=== PATIENT | male | born 1960 | race Caucasian/White ===

== ENCOUNTER → 2016-08-01 | Outpatient (CLI) | payer OTHER ==
[~2016-08-01] MED LIST: B-CO1TAB21 PO; CITA20TA9 PO; DICY10CA12 PO; GLUC500C4 PO; LISI-461 PO; METO25TA3 PO; MULT-220 PO; OMEP20CA9 PO; PRAV40TA PO; ZINC50TA3 PO
[2016-08-01 11:22] LABS: ESTIMATED AVERAGE GLUCOSE 131 mg/dl; HA1C FLAG Normal (Normal)
== END | disposition home or self-care (01) ==
LOC: C.LABBC 08:23
PROVIDERS: ATTEND Internal Medicine Geriatric Medicine
DX: E11.9 Type 2 diabetes mellitus without complications (principal)

== ENCOUNTER → 2016-08-11 | Outpatient (CLI) | payer OTHER ==
[2016-08-11 13:17] LABS: ALB/GLOB RATIO 0.9 (0.9-2); ALT/SGPT 39 U/L (12-78); AST/SGOT 19 U/L (15-37); BLOOD UREA NITROGEN 9 mg/dl (7-18); BUN/CREATININE RATIO 10.4 (10-20); CALCIUM 9.3 mg/dl (8.5-10.1); CARBON DIOXIDE 27 mmol/L (21-32); CHLORIDE 106 mmol/L (98-107); CHOLESTEROL 138 mg/dl (0-200); CREATININE 0.88 mg/dl (0.60-1.40); GLUCOSE 107 mg/dl (70-99); POTASSIUM 4.3 mmol/L (3.5-5.1); SODIUM 139 mmol/L (136-145); TRIGLYCERIDES 76 mg/dl (0-150); VERY LOW DENSITY LIPOPROT CALC 15 mg/dl
[2016-08-11 13:18] LABS: ALKALINE PHOSPHATASE 63 U/L (45-117); CHOLESTEROL/HDL RATIO 2.6; HDL CHOLESTEROL 53 mg/dl; LDL CHOLESTEROL CALCULATED 70 mg/dl
[2016-08-11 13:37] LABS: RATIO 4.8 mcg/mg (0-30.0)
== END | disposition home or self-care (01) ==
LOC: C.LABBC 10:36
PROVIDERS: ATTEND Family Medicine
DX: I10 Essential (primary) hypertension (principal); E11.9 Type 2 diabetes mellitus without complications; Z11.59 Encounter for screening for other viral diseases; E78.5 Hyperlipidemia, unspecified

== ENCOUNTER → 2016-08-17 | Outpatient (CLI) | payer OTHER ==
[~2016-08-17] VITALS: Ht 182.9 cm; Wt 124.2 kg
[2016-08-17 11:41] VITALS: Ht 182.9 cm; Wt 124.2 kg
== END | disposition home or self-care (01) ==
LOC: C.NRED 09:08
PROVIDERS: ATTEND Family Medicine
DX: E11.9 Type 2 diabetes mellitus without complications (principal)

== ENCOUNTER → 2016-12-03 | Outpatient (CLI) | payer OTHER ==
[~2016-12-03] MED LIST changes: +ALBU18002 INH; +ASPI81TA28 PO; +CHOL1000 PO; +CINN500C13 PO; +GLC/500 PO; +LOSA50TA6 PO; +MONT1TAB3 PO; +OMEG10007 PO; +QVRINH80 INH; +SALI0.657 NAE; +TRIA1SPR4 NAE
[2016-12-03 10:45] LABS: BASO % 0.4 %; BASO ABS # 0.03 K/uL (0-0.2); COMPLETE YES; EOS % 1.5 %; HEMATOCRIT 43.2 % (42-52); IG% 0.4 %; LYMPH % 27.6 %; LYMPH ABS # 2.06 K/uL (1.2-3.4); MEAN CELL VOLUME 91.3 fL (80-100); MEAN CORPUSCULAR HEMOGLOBIN 30.4 pg (25-34); MEAN CORPUSCULAR HGB CONC 33.3 g/dl (32-36); MEAN PLATELET VOLUME 11.2 fL (7.4-10.4); MONO % 12.4 %; NEUT % 57.7 %; PLATELET COUNT 201 K/uL (130-400); RED BLOOD COUNT 4.73 M/uL (4.7-6.1); WHITE BLOOD COUNT 7.47 K/uL (4.8-10.8)
[2016-12-03 10:58] LABS: CALCIUM 9.4 mg/dl (8.5-10.1)
[2016-12-03 11:04] LABS: ESTIMATED AVERAGE GLUCOSE 131 mg/dl; HA1C FLAG Normal (Normal)
[2016-12-03 11:06] LABS: ALB/GLOB RATIO 1.1 (0.9-2); ALT/SGPT 35 U/L (12-78); AST/SGOT 16 U/L (15-37); BLOOD UREA NITROGEN 11 mg/dl (7-18); CARBON DIOXIDE 27 mmol/L (21-32); CHLORIDE 103 mmol/L (98-107); CHOLESTEROL 138 mg/dl (0-200); CREATININE 0.87 mg/dl (0.60-1.40); GLUCOSE 108 mg/dl (70-99); POTASSIUM 4.3 mmol/L (3.5-5.1); SODIUM 138 mmol/L (136-145); TRIGLYCERIDES 98 mg/dl (0-150); VERY LOW DENSITY LIPOPROT CALC 20 mg/dl
[2016-12-03 11:09] LABS: ALKALINE PHOSPHATASE 59 U/L (45-117); CHOLESTEROL/HDL RATIO 2.8; HDL CHOLESTEROL 49 mg/dl; LDL CHOLESTEROL CALCULATED 69 mg/dl
== END | disposition home or self-care (01) ==
LOC: C.LABBC 07:35
PROVIDERS: ATTEND Family Medicine
DX: I10 Essential (primary) hypertension (principal); E78.5 Hyperlipidemia, unspecified; E11.9 Type 2 diabetes mellitus without complications

== ENCOUNTER → 2016-12-07 | Outpatient (CLI) | payer OTHER ==
[~2016-12-07] MED LIST changes: +OPTIRAY 320 IV PRN
--- NOTE | 2016-12-07 11:05 | DIAGNOSTIC IMAGING REPORT ---
CT ANGIOGRAM OF THE CHEST COMBO CLINICAL HISTORY: Ascending thoracic aortic aneurysm. COMPARISON STUDY: CT angiogram of the chest dated 01/25/2016. TECHNIQUE: Before and following the IV administration of 120 cc of Optiray 320, CT angiogram of the chest was performed from the thoracic inlet to the upper abdomen utilizing the dissection protocol. Images are reviewed in the axial, sagittal, and coronal planes. 3-D MIPS images are created and assessed. IV contrast was administered without complication. CT DOSE: 1601.05 mGy.cm FINDINGS: Thyroid: Imaged portions of the thyroid gland are normal in size and attenuation. Thoracic aorta: No intramural hematoma is seen on the unenhanced series. There is mild aneurysmal dilatation of the ascending thoracic aorta which measures up to 4.4 cm diameter. The remainder of the thoracic aorta is normal in caliber. The mid arch measures up to 3.0 cm, and the descending thoracic aorta measures up to 2.5 cm. The thoracic aorta demonstrates bovine variant arch anatomy. No dissection is seen. The arch vessels are widely patent. Pulmonary vasculature: The pulmonary trunk is dilated measuring up to 3.7 cm in diameter. This suggests pulmonary artery hypertension. There are no central filling defects identified in the pulmonary vessels to suggest pulmonary embolus. Note that this examination was not specifically protocoled to assess for pulmonary emboli. Heart: The heart is mildly enlarged and without pericardial effusion. Lungs and pleural spaces: The lungs and pleural spaces are clear. The trachea and central airways are patent. Mediastinum: There is no mediastinal lymphadenopathy. Kay: Clear. Axillae: There is no axillary lymphadenopathy. Upper abdomen: The liver appears enlarged and steatotic. There is a tiny hiatal hernia. Partially visualized upper abdominal viscera is otherwise within normal limits. Skeletal structures: No lytic or blastic bony lesions are seen. IMPRESSION: 1. There is mild aneurysmal dilatation of the ascending thoracic aorta. This measures up to 4.4 cm in diameter and has not significantly changed from 01/25/2016. 2. Cardiomegaly. 3. The lungs are clear. 4. Hepatic steatosis. 5. Additional findings as above. Electronically signed by: aDyo Ivy M.D. 12/07/2016 11:04 AM Dictated Date/Time: 12/07/2016 10:57 AM
== END | disposition home or self-care (01) ==
LOC: C.CTS 10:21
PROVIDERS: ATTEND Internal Medicine Interventional Cardiology
DX: I71.2 Thoracic aortic aneurysm, without rupture (principal); I51.7 Cardiomegaly; K76.0 Fatty (change of) liver, not elsewhere classified

== ENCOUNTER → 2017-06-17 | Outpatient (CLI) | payer OTHER ==
[~2017-06-17] MED LIST changes: -OPTIRAY 320 IV PRN
[2017-06-17 11:46] LABS: ALT/SGPT 31 U/L (12-78); AST/SGOT 16 U/L (15-37); BLOOD UREA NITROGEN 11 mg/dl (7-18); BUN/CREATININE RATIO 15.4 (10-20); CALCIUM 9.2 mg/dl (8.5-10.1); CARBON DIOXIDE 25 mmol/L (21-32); CHLORIDE 101 mmol/L (98-107); CREATININE 0.74 mg/dl (0.60-1.40); GLUCOSE 105 mg/dl (70-99); POTASSIUM 4.3 mmol/L (3.5-5.1); SODIUM 133 mmol/L (136-145)
[2017-06-17 11:51] LABS: ALB/GLOB RATIO 0.8 (0.9-2); ALKALINE PHOSPHATASE 54 U/L (45-117); CHOLESTEROL 134 mg/dl (0-200); CHOLESTEROL/HDL RATIO 2.7; HDL CHOLESTEROL 50 mg/dl; LDL CHOLESTEROL CALCULATED 72 mg/dl; PROSTATE SPECIFIC ANTIGEN 0.371 ng/ml (0.000-4.000); TRIGLYCERIDES 62 mg/dl (0-150); VERY LOW DENSITY LIPOPROT CALC 12 mg/dl
== END | disposition home or self-care (01) ==
LOC: C.LAB 09:49
PROVIDERS: ATTEND Physician Assistant
DX: Z00.00 Encounter for general adult medical examination without abnormal findings (principal); E78.5 Hyperlipidemia, unspecified; E11.9 Type 2 diabetes mellitus without complications

== ENCOUNTER → 2017-06-28 | Outpatient (CLI) | payer OTHER ==
[~2017-06-28] MED LIST changes: -LISI-461 PO
[2017-06-28 17:24] LABS: BLOOD UREA NITROGEN 14 mg/dl (7-18); BUN/CREATININE RATIO 18.1 (10-20); CALCIUM 9.2 mg/dl (8.5-10.1); CARBON DIOXIDE 24 mmol/L (21-32); CHLORIDE 106 mmol/L (98-107); CREATININE 0.77 mg/dl (0.60-1.40); GLUCOSE 101 mg/dl (70-99); POTASSIUM 4.3 mmol/L (3.5-5.1); SODIUM 134 mmol/L (136-145)
== END | disposition home or self-care (01) ==
LOC: C.LABBC 12:21
PROVIDERS: ATTEND Physician Assistant
DX: D64.9 Anemia, unspecified (principal)

== ENCOUNTER 2017-07-12 08:02 | Day surgery (SDC) | payer OTHER ==
[2017-06-17 09:59] VITALS: BMI 37.0
--- NOTE | 2017-06-17 10:43 | PAT Medication Instructions ---
Service Date Jun 17, 2017. Current Home Medication List Albuterol Sulfate (Proair Respiclick), 2 PUFF INH Q4 PRN for SOB/Wheezing Aspirin (Aspirin Ec), 81 MG PO QPM B-Complex W/Biotin & Folic Aci (Vitamin B50 Complex Tr), 1 TAB PO QPM Beclomethasone Dip (Qvar), 2 PUFF INH BID Cholecalciferol (Vitamin D3), 1 TAB PO QPM Cinnamon (Cinnamon Extract), 2,000 MG PO BID Citalopram Hydrobromide (Celexa), 20 MG PO QAM Dicyclomine Hcl (Dicyclomine Hcl), 10 MG PO Fish Oil ([place]-3), 1 CAP PO QAM Glucosamine Sulfate (Glucosamine), 1,000 MG PO BID Losartan Potassium (Cozaar), 50 MG PO QAM Metformin Hcl (Glucophage), 500 MG PO QPM Metoprolol Succinate (Toprol Xl), 25 MG PO QAM Montelukast Sodium (Singulair), 10 MG PO QPM Multiple Vitamins W/ Minerals (Multi For Him), 1 TABLET PO QAM Omeprazole (Prilosec), 20 MG PO BID Pravastatin Sodium (Pravachol), 20 MG PO HS Saline ([place]), 1 SPRY LIVAN Q8 PRN for PRN Triamcinolone Acetonide (Nasal (Nasacort Allergy 24Hr), 2 SPRAY LIVAN QAM Zinc (Zinc), 50 MG PO QPM Medication Instructions For Your Scheduled Surgery - Hold the following medications 2 weeks prior to surgery: Fish Oil ([place]-3), 1 CAP PO QAM Glucosamine Sulfate (Glucosamine), 1,000 MG PO BID Cinnamon (Cinnamon Extract), 2,000 MG PO BID - Hold the following medications 48 hours prior to surgery: Metformin Hcl (Glucophage), 500 MG PO QPM - Hold the following medications the morning of surgery: Saline ([place]), 1 SPRY LIVAN Q8 PRN for PRN Multiple Vitamins W/ Minerals (Multi For Him), 1 TABLET PO QAM Losartan Potassium (Cozaar), 50 MG PO QAM Dicyclomine Hcl (Dicyclomine Hcl), 10 MG PO PRN - Take the following medications the morning of surgery with a sip of water: Triamcinolone Acetonide (Nasal (Nasacort Allergy 24Hr), 2 SPRAY LIVAN QAM Omeprazole (Prilosec), 20 MG PO BID Metoprolol Succinate (Toprol Xl), 25 MG PO QAM Beclomethasone Dip (Qvar), 2 PUFF INH BID Citalopram Hydrobromide (Celexa), 20 MG PO QAM Albuterol Sulfate (Proair Respiclick), 2 PUFF INH Q4 PRN for SOB/Wheezing (if needed, and bring with you to the hospital) - Take the following medications as scheduled the night before surgery: Zinc (Zinc), 50 MG PO QPM Omeprazole (Prilosec), 20 MG PO BID Pravastatin Sodium (Pravachol), 20 MG PO HS Montelukast Sodium (Singulair), 10 MG PO QPM Cholecalciferol (Vitamin D3), 1 TAB PO QPM Dicyclomine Hcl (Dicyclomine Hcl), 10 MG PO PRN Beclomethasone Dip (Qvar), 2 PUFF INH BID Aspirin (Aspirin Ec), 81 MG PO QPM B-Complex W/Biotin & Folic Aci (Vitamin B50 Complex Tr), 1 TAB PO QPM Albuterol Sulfate (Proair Respiclick), 2 PUFF INH Q4 PRN for SOB/Wheezing (if needed) If you have any questions please call us at [phone] or [phone] or [phone]
[2017-06-17 11:40] LABS: BASO % 0.8 %; BASO ABS # 0.06 K/uL (0-0.2); EOS % 1.4 %; HEMATOCRIT 38.7 % (42-52); HEMOGLOBIN 13.4 g/dL (14.0-18.0); IG# 0.08 K/uL (0.00-0.02); LYMPH % 27.1 %; LYMPH ABS # 1.99 K/uL (1.2-3.4); MEAN CELL VOLUME 90.8 fL (80-100); MEAN CORPUSCULAR HEMOGLOBIN 31.5 pg (25-34); MEAN CORPUSCULAR HGB CONC 34.6 g/dl (32-36); MEAN PLATELET VOLUME 10.3 fL (7.4-10.4); MONO % 9.8 %; MONO ABS # 0.72 K/uL (0.11-0.59); NEUT % 59.8 %; NEUT ABS # 4.38 K/uL (1.4-6.5); PLATELET COUNT 185 K/uL (130-400); RED CELL DISTRIBUTION WIDTH CV 13.9 % (11.5-14.5); RED CELL DISTRIBUTION WIDTH SD 45.8 fL (36.4-46.3); WHITE BLOOD COUNT 7.33 K/uL (4.8-10.8)
[2017-06-17 13:36] LABS: HEMOGLOBIN A1C 5.9 % (4.5-5.6)
--- NOTE | 2017-07-11 22:50 | History and Physical ---
History & Physical Date Jul 11, 2017. Chief Complaint right shoulder pain History of Present Illness The patient is a 57 year old male with complaints of right shoulder pain. He was treated conservatively but without improvement. He had an MRI that demonstrated a rotator cuff tear and labral tear. He is now being set up for surgical tx. Past Medical/Surgical History PMH: HTN, hypercholesterolemia, aortic aneurysm, asthma, anxiety/depression, diabetes, acid reflux, obesity Past surgical hx: sinus surgery, oral surgery, bilateral carpal tunnel releases. Social hx: denies tobacco use. Allergies Coded Allergies: Chlorpheniramine (Unverified Allergy, Unknown, 06/17/17) Replaces HYDROCODONE/P Hydrocodone (Unverified Allergy, Unknown, 06/17/17) Replaces HYDROCODONE/P Phenylephrine (Unverified Allergy, Unknown, 06/17/17) Replaces HYDROCODONE/P Tetracycline (Unverified Allergy, Unknown, 06/17/17) Home Medications Scheduled Aspirin (Aspirin Ec), 81 MG PO QPM B-Complex W/Biotin & Folic Aci (Vitamin B50 Complex Tr), 1 TAB PO QPM Beclomethasone Dip (Qvar), 2 PUFF INH BID Cholecalciferol (Vitamin D3), 1 TAB PO QPM Cinnamon (Cinnamon Extract), 2,000 MG PO BID Citalopram Hydrobromide (Celexa), 20 MG PO QAM Fish Oil ([place]-3), 1 CAP PO QAM Glucosamine Sulfate (Glucosamine), 1,000 MG PO BID Losartan Potassium (Cozaar), 50 MG PO QAM Metformin Hcl (Glucophage), 500 MG PO QPM Metoprolol Succinate (Toprol Xl), 25 MG PO QAM Montelukast Sodium (Singulair), 10 MG PO QPM Multiple Vitamins W/ Minerals (Multi For Him), 1 TABLET PO QAM Omeprazole (Prilosec), 20 MG PO BID Pravastatin Sodium (Pravachol), 20 MG PO HS Triamcinolone Acetonide (Nasal (Nasacort Allergy 24Hr), 2 SPRAY LIVAN QAM Zinc (Zinc), 50 MG PO QPM Scheduled PRN Albuterol Sulfate (Proair Respiclick), 2 PUFF INH Q4 PRN for SOB/Wheezing Dicyclomine Hcl (Dicyclomine Hcl), 10 MG PO Saline ([place]), 1 SPRY LIVAN Q8 PRN for PRN Physical Examination Skin: warm/dry Eyes: normal inspection ENT: normal ENT inspection Head: normocephalic, atraumatic Neck: supple, no adenopathy, trachea midline Respiratory/Chest: lungs clear, normal breath sounds, no respiratory distress Cardiovascular: regular rate, rhythm, no murmur Abdomen / GI: normal bowel sounds, non tender Extremities: + pertinent finding (Right shoulder: no erythema or ecchymosis, tender at the anterior/posterior shoulder, + empty can testing, + cross arm impingement, + SLAP tests, painful PROM, decreased strength right shoulder in all directions.) Neurologic/Psych: no motor/sensory deficits, alert, oriented x 3 Diagnosis Right shoulder rotator cuff tear Right AC joint DJD Right shoulder SLAP tear Right shoulder subacromial impingement Plan of Treatment Recommend a right shoulder scope with rotator cuff repair, debridement labrum, possible SLAP repair, SAD with acromioplasty, DCE. All potential risks, benefits, complications, alternatives, and rehab have been discussed with the patient and he wishes to proceed. He will be scheduled for 07.12.17.
[~2017-07-12] VITALS: Ht 182.9 cm; Wt 122.8 kg
[2017-07-12] VITALS (7 sets, daily range): BP systolic 126–144; BP diastolic 61–92; PULSE 65–82; TEMP 36.6–37; O2SAT 93–96; Ht 182.9 cm; Wt 122.8 kg
[~2017-07-12 08:02] MED LIST changes: +ATROPINE SULFATE 0.1 MG/ML 5ML SYR IV PRN; +CEFAZOLIN 3000MG IV PUSH 15 ML IV SCH; +EpHEDrine SULFATE INJ 50 MG/ML AMP IV PRN; +FENTANYL CITRATE INJ 50 MCG/1 ML 2 ML VIAL IV PRN; +HYDROmorphone INJ 1 MG/ML SYR IV PRN; +LABETALOL HCL IV 5 MG/ML 20ML IV PRN; +LACTATED RINGER'S 1000ML 1,000 ML IV SCH; +MEPERIDINE HCL 25 MG/ML CARP IV PRN; +ONDANSETRON INJ 2 MG/ML 2 ML VIAL IV PRN; +ROPIVACAINE 0.5% 5 MG/ML 30 ML VIAL ONE
[2017-07-12] MEDS ORDERED: FENTANYL CITRATE INJ 50 MCG/1 ML 2 ML VIAL ONE (08:03)
[2017-07-12] MEDS ORDERED: ONDANSETRON INJ 2 MG/ML 2 ML VIAL ONE (08:03)
[2017-07-12] MEDS ORDERED: NEOSTIGMINE METHYLSULFATE 5 MG/5 ML SYR ONE (08:03)
[2017-07-12] MEDS ORDERED: GLYCOPYRROLATE INJ 0.2 MG/ML VIAL ONE ×2 (08:03→12:35)
[2017-07-12] MEDS ORDERED: MIDAZOLAM HCL 1 MG/ML 2ML VIAL ONE ×2 (08:03→09:56)
[2017-07-12] MEDS ORDERED: PROPOFOL IV EMULSION 10 MG/ML 20 ML VIAL IV ONE (08:03)
[2017-07-12] MEDS ORDERED: ROCURONIUM BROMIDE 10 MG/ML 5 ML VIAL IV ONE (08:03)
--- NOTE | 2017-07-12 09:48 | History & Physical Bridge Note ---
H&P Re-Evaluation Bridge Note: I have examined the patient, reviewed the History & Physical and in the interval since the performance of the History & Physical I have noted the following changes of clinical significance: No changes noted
[2017-07-12] MEDS ORDERED: BUPIVACAINE/EPINEPHRINE 0.25% 1:200,000 30 ML VIAL ONE (10:20)
[2017-07-12] MEDS ORDERED: EpINEphrine HCL INJ 1 MG/ML 5ML SYRINGE ONE ×2 (10:21→12:07)
[2017-07-12] MEDS ORDERED: TRAM-10 PO (13:05)
[2017-07-12] MEDS ORDERED: RXC5 PO (13:05)
--- NOTE | 2017-07-12 13:08 | [facility] Post Operative Brief Note ---
Immediate Operative Summary Operative Date Jul 12, 2017. Pre-Operative Diagnosis Right Shoulder Rotator Cuff Tear, Subacromial Impingement Syndrome, Acromioclavicular Joint Osteoarthritis, SLAP tear Post-Operative Diagnosis Right Shoulder Rotator Cuff Tear, Subacromial Impingement Syndrome, Acromioclavicular Joint Osteoarthritis, SLAP tear, Synovitis Procedure(s) Performed Right Shoulder Arthroscopic Subacromial Decompression with Acromiplasty , Distal Clavicle Excision, Rotator Cuff Repair, Debridement Labrum/SLAP tear, Synovectomy Surgeon Dr. Felice Vidal Agricultural Equipment Design Engineer Surgeon(s) David Moeller PA-C Estimated Blood Loss 5ml Findings See Dict Specimens none per surgeon Drains None Anesthesia GETT w/ Interscalene Block Complication(s) None Disposition Recovery Room / PACU
--- NOTE | 2017-07-12 13:09 | Discharge Instructions ---
Discharge Instructions Date of Service Jul 12, 2017. Visit Reason for Visit: Right Shoulder Impingement Syndrome, Osteoarthriti Discharge Discharge Diagnosis / Problem: Right Shoulder Impingement Syndrome; Rotator Cuff Tear Discharge Goals Goal(s): Decrease discomfort, Improve function, Increase independence Activity Recommendations Activity Limitations: per Instructions/Follow-up section Anesthesia . Post Anesthesia Instructions: If you have had General Anesthesia or IV Sedation: * Do not drive today. * Resume driving when surgeon permits. * Do not make important decisions or sign legal documents today. * Call surgeon for: 1. Temperature elevations greater than 101 degrees F. 2. Uncontrollable pain. 3. Excessive bleeding. 4. Persistent nausea and vomiting. 5. Medication intolerance (nausea, vomiting or rash). * For nausea and vomiting use only clear liquids such as: tea, soda, bouillon until nausea subsides, then gradually increase diet as tolerated. * If you have any concerns or questions, call your surgeon's office. If physician is unavailable and it is an emergency, call 911 or go to the nearest emergency room. . Instructions / Follow-Up Instructions / Follow-Up U DISCHARGE INSTRUCTIONS: ROTATOR CUFF REPAIR SELF CARE INSTRUCTIONS A. You are permitted to loosen your sling/immobilizer to move your elbow, wrist , and hand to prevent stiffness. You should use your well arm (good arm) to assist the operated extremity when trying to raise the arm away from the body, hygiene purposes. Do NOT actively try to use/engage your shoulder muscles in operative arm at this time. You should NOT do overhead activity, lifting, or attempt to reach behind your back. B. You may/may not be instructed to start Physical Therapy upon discharge depending upon the size and difficulty of the repair. You will be provided a prescription for therapy with specific restrictions, if needed, at time of discharge. C. At 48 hours post-operatively, you may change your dressing. (Leave white steri-strips intact if present). Use band-aids and change daily. You are allowed to shower at this time and get the incision area wet, but DO NOT soak or submerge incision area in water. (No baths, swimming pools, hot tubs) D. Do NOT apply soap or any ointment/lotions directly over incision. E. You may use ice as needed to operative shoulder SPECIAL CARE INSTRUCTIONS: VERY IMPORTANT TO READ AND REVIEW A. There are a few signs you need to watch for after you are home. Call [facility] at [phone] if you experience any of the following: a. Increased severe shoulder pain. Some pain is expected especially when you exercise b. Increased swelling in your shoulder or arm; pain or swelling in either upper extremity. (Note: swelling and stiffness is normal and expected for several weeks post op, depending on type of shoulder surgery you had). c. Any fluid or drainage from the incision; redness of the incision. d. Shortness of breath or chest pain. B. Please call [facility] at [phone] if you have any questions or concerns about your operation or recovery. C. Call your physician if: a. Temperature is greater than 101 degrees (F). b. Pain is not relieved by prescribed pain medications. c. Increase drainage or redness from incision. d. Unanswered questions or concerns. D. Pain Medication: a. You will be prescribed pain medication upon discharge that should last till your first post-operative appointment. b. If you experience nausea and/or skin rash, discontinue this medication and contact our office for an alternative medication. c. Caution- narcotic pain medication can cause constipation. FOLLOW UP VISIT: Please call [facility] at [phone] to schedule a follow up appointment 10-14 days from your surgery date. Diet Recommendations Recommended Home Diet: resume previous diet Procedures Procedures Performed: Right Shoulder Arthroscopic Subacromial Decompression with Acromiplasty , Distal Clavicle Excision, Rotator Cuff Repair, and Labrum Debridement Pending Studies Studies pending at discharge: no Medical Emergencies . Who to Call and When: Medical Emergencies: If at any time you feel your situation is an emergency, please call 911 immediately. . Non-Emergent Contact Non-Emergency issues call your: Surgeon Call Non-Emergent contact if: temperature is above 101.5, your pain is not controlled, your pain is worsening, wound has increased drainage, wound has increased redness . . "Provider Documentation" section prepared by David Moeller. . [place] Drug Monitoring Program Search Results: patient reviewed within database, no issues identified
[2017-07-12] MEDS ORDERED: KETOROLAC TROMETHAMINE 30 MG/ML VIAL IV. PRN (13:15)
[2017-07-12] MEDS ORDERED: MoRPHine SULFATE 2 MG/ML CARP IV PRN (13:15)
[2017-07-12] MEDS ORDERED: ONDANSETRON INJ 2 MG/ML 2 ML VIAL IV PRN (13:15)
[2017-07-12] MEDS ORDERED: OXYCODONE HCL IR 5 MG TAB (IMMEDIATE RELEASE) PO PRN (13:15)
--- NOTE | 2017-07-12 13:44 | Anesthesiology Progress Note ---
Anesthesia Post Op Note Date & Time Jul 12, 2017 at 13:43 Vital Signs Pain Intensity: 0 Vital Signs Past 12 Hours Date Time Temp Pulse Resp B/P (MAP) Pulse Ox O2 Delivery O2 Flow Rate FiO2 07/12/17 13:35 66 12 118/66 93 Oxymask 2 07/12/17 13:25 36.4 74 14 113/66 95 Oxymask 2 07/12/17 13:15 68 12 126/68 98 Oxymask 10 07/12/17 13:05 77 16 130/71 97 Oxymask 10 07/12/17 12:55 36.5 86 11 141/70 96 Oxymask 10 07/12/17 08:29 37 67 18 144/92 (109) Room Air 07/12/17 08:26 37 67 18 144/92 (109) Room Air Notes Mental Status: alert / awake / arousable, participated in evaluation Pt Amnestic to Procedure: Yes Nausea / Vomiting: adequately controlled Pain: adequately controlled Airway Patency, RR, SpO2: stable & adequate BP & HR: stable & adequate Hydration State: stable & adequate Anesthetic Complications: no major complications apparent
--- NOTE | 2017-07-12 14:02 | OPERATIVE REPORT ---
DATE OF OPERATION: 07/12/2017 PREOPERATIVE DIAGNOSES: 1. Right shoulder rotator cuff tear. 2. Subacromial impingement. 3. Superior labrum, anterior and posterior tear/labral tear. 4. Acromioclavicular joint degenerative joint disease. POSTOPERATIVE DIAGNOSES: 1. Right shoulder rotator cuff tear. 2. Subacromial impingement. 3. Labral tear. 4. Acromioclavicular joint degenerative joint disease. 5. Synovitis. PROCEDURE: 1. Right shoulder arthroscopy with rotator cuff repair. 2. Subacromial decompression with acromioplasty. 3. Distal clavicle excision. 4. Debridement glenoid labrum and superior labrum, anterior and posterior tear. 5. Synovectomy of the shoulder. SURGEON: Dr. Vidal. FILM ARCHIVIST: David Moeller PA-C. ANESTHESIA: General endotracheal tube with interscalene block. SPECIMENS: None. DRAINS: None. COMPLICATIONS: None. BLOOD LOSS: 5 mL. PERTINENT HISTORY: This is a 57-year-old gentleman who has had severe right shoulder pain with limitation in abduction and external rotation of the shoulder for the last 2-3 months. He attempted and failed conservative management including anti-inflammatories, Tylenol, physician directed home exercises, physical therapy, modification of activities and injections. He had an MRI which demonstrated a rotator cuff tear, subacromial impingement, SLAP tear and degenerative joint disease of the acromioclavicular joint. The patient was then scheduled for surgery as indicated. All potential risks, benefits, complications, alternatives, rehab, potential for incomplete relief of symptoms, need for further surgery, DVT, PE, , persistent pain, swelling, scarring, weakness, neurovascular injury, wound complications were discussed with the patient. The patient decided to proceed with the procedure as indicated. OPERATION AND FINDINGS: PROCEDURE: After interscalene block was administered in the preop holding area, the patient was taken to the operative suite, placed supine on the operating room table. After review of the consent, identification of proper operative site, the patient was anesthetized, endotracheal tube was placed. Next, the patient was positioned in beach chair position using the Schlein positioner with all bony prominences properly padded and protected. Next, the right shoulder was then sterilely prepped and draped in usual fashion. Next, the shoulder was then injected with approximately 15 mL of 0.25% Marcaine with epinephrine followed by an 11-blade scalpel incision followed by placement of blunt trocar and sleeve camera and inflow through the posterior portal site. Next, the anterior portal was established using an 18 gauge spinal needle followed by 11-blade scalpel incision followed by placement of blunt trocar and sleeve. Next, a blunt ball-tipped probe was inserted into the anterior portal and sequential diagnostic arthroscopy commenced in the anterior aspect of the shoulder noting intact biceps tendon. The labrum was noted to be torn, superior labral, anterior and posterior tearing was noted with fibrillation. There was no significant effacement of the glenoid. Therefore, debridement was chosen as the treatment of choice due to the patient's age and the type of tear. Next, a 4.5 mm sucker shaver was inserted into the shoulder joint and then the labrum was then debrided. The SLAP tears were debrided to a point of stability and then the Arthrocare ablation wand was then used to smooth and contour the remainder of the labrum. There appeared to be no impingement and no significant instability of the biceps anchor. Next, the articular surfaces were inspected and noted to have some minor fissuring and fibrillation, particularly in the central aspect of the glenoid. Humeral head articular cartilage was intact. There was noted to be synovitis throughout the shoulder joint, particularly anterior aspect of the superior aspect, 4.5 mm sucker shaver was then used to perform synovectomy. Next, the inferior gutter was inspected. Inferior pouch did have some minor synovitis. Synovectomy was performed with the sucker shaver. Next, attention was then directed toward the rotator cuff. There was noted to be an anterior approximately 50% tear of the supraspinatus insertion adjacent to the biceps tendon. The biceps hiatus was preserved. The bare area was intact. The infraspinatus was intact. Next, the arthroscope was then directed into the subacromial space and a lateral portal was established using 11 blade scalpel followed by placement of a 4.5 mm sucker shaver. Next bursectomy and subacromial decompression was performed to further visualize and decompress subacromial space followed by acromioplasty using a 4.0 mm barrel fatuma. After the acromioplasty had been completed the distal clavicle excision was performed and approximately 10-11 mm of distal clavicle was excised using a 4.0 mm barrel bur. All particulate debris was then flushed in the subacromial space. A tangerine cannula was then placed in the anterior portal site and lateral portal site was used to place a seldovia green cannula and then a 4.5 mm sucker shaver was then used to perform a debridement of the rotator cuff tear and preparation of the bony bed in the lateral aspect of the humerus was performed with the sucker shaver. Once this was completed, bleeding bone was achieved. The spinal needle was then used to localize for placement of the bone anchor which was placed percutaneously adjacent to the acromion. Next, an 11 blade scalpel incision was used to make an incision in the skin and the deltoid followed by placement of a single 4.5 mm Healicoil double loaded suture anchor into the humerus. Next, using an expresso and a standard suture shuttling techniques 2 horizontal mattress sutures were placed into the rotator cuff providing a watertight seal. These sutures were then tied and cut and the rotator cuff repair was noted to be stable. Next, the portals were removed from anterior and lateral aspect of the shoulder followed by expression of all excess fluid from the subacromial space. The portal sites were closed using buried interrupted 3-0 Vicryl sutures and 4-0 nylon sutures. Next, a sterile compressive dressing and sling was applied to the right upper extremity. The patient was then awakened and taken to recovery in stable condition. I attest to the content of the Intraoperative Record and any orders documented therein. Any exception s are noted below.
== END 2017-07-12 16:45 | disposition home or self-care (01) ==
LOC: C.ACU 08:02
PROVIDERS: ATTEND Orthopaedic Surgery Sports Medicine
DX: M75.101 Unspecified rotator cuff tear or rupture of right shoulder, not specified as traumatic (principal); M19.011 Primary osteoarthritis, right shoulder; I10 Essential (primary) hypertension; E78.00 Pure hypercholesterolemia, unspecified; J45.909 Unspecified asthma, uncomplicated; E11.9 Type 2 diabetes mellitus without complications; F41.9 Anxiety disorder, unspecified; K21.9 Gastro-esophageal reflux disease without esophagitis; E66.9 Obesity, unspecified; F32.9 Major depressive disorder, single episode, unspecified; Z79.84 Long term (current) use of oral hypoglycemic drugs; Z79.82 Long term (current) use of aspirin